=== PATIENT | female | born 1975 | race Caucasian/White ===

== ENCOUNTER 2021-12-15 12:39 | Outpatient (CLI) | payer OTHER, SELFPAY ==
--- NOTE | 2021-12-15 13:00 | CRLHL7_ITS ---
For Patients: As a result of the Century Cures Act, medical imaging exams and procedure reports are released immediately into your electronic medical record. You may view this report before your referring provider. If you have questions, please contact your health care provider. BILATERAL SCREENING MAMMOGRAM WITH COMPUTER-AIDED DETECTION AND TOMOSYNTHESIS TECHNIQUE: CC and MLO views were obtained. These mammographic images have been obtained using full-field digital technique. These mammographic images were interpreted with the benefit of computer-aided detection. Breast Tomosynthesis was used in this interpretation. COMPARISON FILM: 12/13/20, 12/12/19, 08/24/18. FINDINGS: The breasts are heterogeneously dense, which may obscure small masses IMPRESSION: There is no radiographic evidence for malignancy. ASSESSMENT: BI-RADS Category 1: Negative RECOMMENDATION: Routine screening mammogram in 1 year. A lay language report of this examination will be provided to the patient. Edilberto Amado M.D. Diagnostic Radiologist [email or web address] THOM/Dictated by: Edilberto Amado MD @ 12/16/2021 8:45:00 AM (Electronically Signed)
== END 2021-12-15 12:40 | disposition home or self-care (01) ==
LOC: MAMMO 12:40
PROVIDERS: PCP Family Medicine; Visit Provider Family Medicine
DX: Z12.31 Encounter for screening mammogram for malignant neoplasm of breast (principal); R92.2 Inconclusive mammogram
CPT/HCPCS: 77063; 77067

== ENCOUNTER 2024-10-10 14:32 | Outpatient (CLI) | payer BC, SELFPAY ==
[2024-10-12 04:32] LABS: HPV Source Cervix
== END 2024-10-10 14:33 | disposition home or self-care (01) ==
PROVIDERS: PCP Family Medicine; Visit Provider Registered Nurse
DX: Z12.4 Encounter for screening for malignant neoplasm of cervix (principal); Z11.51 Encounter for screening for human papillomavirus (HPV)
CPT/HCPCS: 87624; 87625; 88141; 88142

== ENCOUNTER 2024-10-12 10:10 | Outpatient (CLI) | payer BC, SELFPAY ==
--- NOTE | 2024-10-12 11:13 | P.ANES_ITS ---
Anesthesia Charges Start Date/Time Anesthesia Start Date: 10/12/24 Anesthesia Start Time: 10:48 Stop Date/Time Anesthesia Stop Date: 10/12/24 Anesthesia Stop Time: 11:11 Coding CPT Codes CPT Codes: MICH LWR INTST NDIA NOS - [id number] ([id number]) P1 - NORMAL HEALTHY PATIENT, QK - INDUSTRIAL RELATIONS ANALYST 2-4 CNCRNT ANES PROC, QX - REGISTERED RADIOLOGIC TECHNOLOGIST SVC W/ MED DIRECTION
--- NOTE | 2024-10-12 11:13 | W.ANESCHARGE ---
Anesthesia Charges Start Date/Time Anesthesia Start Date: 10/12/24 Anesthesia Start Time: 10:48 Stop Date/Time Anesthesia Stop Date: 10/12/24 Anesthesia Stop Time: 11:11 Coding CPT Codes CPT Codes: MICH LWR INTST NDCA NOS - [id number] ([id number]) P1 - NORMAL HEALTHY PATIENT, QK - SALT MACHINE OPERATOR 2-4 CNCRNT ANES PROC, QX - RN GERIATRIC SVC W/ MED DIRECTION
--- NOTE | 2024-10-12 11:16 | P.ANES_ITS ---
Anesthesia Charges Start Date/Time Anesthesia Start Date: 10/12/24 Anesthesia Start Time: 10:48 Stop Date/Time Anesthesia Stop Date: 10/12/24 Anesthesia Stop Time: 11:11 Coding CPT Codes CPT Codes: MICH LWR INTST NDIN NOS - [id number] ([id number]) P1 - NORMAL HEALTHY PATIENT, QK - WARD AIDE 2-4 CNCRNT ANES PROC, QX - JAVA APPLICATION DEVELOPER SVC W/ MED DIRECTION
--- NOTE | 2024-10-12 11:16 | W.ANESCHARGE ---
Anesthesia Charges Start Date/Time Anesthesia Start Date: 10/12/24 Anesthesia Start Time: 10:48 Stop Date/Time Anesthesia Stop Date: 10/12/24 Anesthesia Stop Time: 11:11 Coding CPT Codes CPT Codes: MICH LWR INTST NDID NOS - [id number] ([id number]) P1 - NORMAL HEALTHY PATIENT, QK - MARINE ELECTRONICS REPAIRER 2-4 CNCRNT ANES PROC, QX - VEST PRESSER SVC W/ MED DIRECTION
== END 2024-10-12 10:11 | disposition home or self-care (01) ==
LOC: OP CLINIC 10:10
PROVIDERS: PCP Family Medicine; Visit Provider Surgery
DX: Z12.11 Encounter for screening for malignant neoplasm of colon (principal); D12.5 Benign neoplasm of sigmoid colon
CPT/HCPCS: 00811; 00812; 45385; 88305; J2704

== ENCOUNTER 2025-01-18 14:41 | Outpatient (CLI) | payer BC, SELFPAY ==
--- NOTE | 2025-01-18 15:00 | CRLHL7_ITS ---
For Patients: As a result of the Cures Act, medical imaging exams and procedure reports are released immediately into your electronic medical record. You may view this report before your referring provider. If you have questions, please contact your health care provider. BILATERAL DIGITAL SCREENING MAMMOGRAM WITH COMPUTER-AIDED DETECTION AND TOMOSYNTHESIS CLINICAL HISTORY: Routine screening exam. COMPARISON: Mammogram 12/15/2021, 12/13/2020. TECHNIQUE: Digital mammogram in CC and MLO projections including computer-aided detection (CAD) and tomosynthesis. BREAST COMPOSITION: There are scattered areas of fibroglandular density. FINDINGS: RIGHT Breast: There is a focal asymmetry at approximately 6 o`clock, posterior depth. LEFT Breast: No suspicious findings. IMPRESSION: RIGHT breast focal asymmetry. RECOMMENDATIONS: Additional mammographic views of the RIGHT breast including 90-degree lateral, spot compression CC and MLO. RIGHT breast ultrasound may also be required. [facility] will contact the patient for follow-up. BI-RADS Category 0: Incomplete: Need Additional Imaging Evaluation A lay language report of this examination will be provided to the patient. Dictated by Mi Luke MD @ 01/20/2025 7:58:29 AM /sp SP/Dictated by: Mi Luke MD @ 01/20/2025 7:58:00 AM (Electronically Signed)
== END 2025-01-18 14:42 | disposition home or self-care (01) ==
LOC: MAMMO 14:41
PROVIDERS: PCP Family Medicine; Visit Provider Registered Nurse
DX: Z12.31 Encounter for screening mammogram for malignant neoplasm of breast (principal); N63.10 Unspecified lump in the right breast, unspecified quadrant
CPT/HCPCS: 77063; 77067

== ENCOUNTER 2025-02-01 08:33 | Outpatient (CLI) | payer BC, SELFPAY ==
--- NOTE | 2025-02-01 08:45 | CRLHL7_ITS ---
For Patients: As a result of the Cures Act, medical imaging exams and procedure reports are released immediately into your electronic medical record. You may view this report before your referring provider. If you have questions, please contact your health care provider. DIGITAL DIAGNOSTIC RIGHT MAMMOGRAM USING TOMOSYNTHESIS RIGHT BREAST ULTRASOUND CLINICAL HISTORY: RIGHT breast mass/asymmetry. COMPARISON: 01/18/2025, 12/15/2021, 12/13/2020. TECHNIQUE: Digital RIGHT mammogram in three projections. Tomosynthesis was used in this interpretation. Real-time ultrasound imaging of RIGHT breast with imaging documentation. BREAST COMPOSITION: There are scattered areas of fibroglandular density. FINDINGS: Additional mammogram images RIGHT breast submitted. Nodular density is present with central low density consistent with lymph node. No architectural distortion or suspicious calcifications. Targeted RIGHT breast ultrasound performed at 6 o`clock 7 cm from the nipple. Normal breast tissue is present. No suspicious findings. IMPRESSION: Benign intramammary lymph node RIGHT breast. No suspicious findings. No evidence of malignancy. RECOMMENDATIONS: Routine screening mammography. A lay language report of this examination will be provided to the patient. BI-RADS Category 2: Benign Dictated by Edilberto Amado MD @ 02/01/2025 9:54:33 AM jj/Dictated by: Edilberto Amado MD @ 02/01/2025 9:54:00 AM (Electronically Signed)
--- NOTE | 2025-02-01 09:15 | CRLHL7_ITS ---
For Patients: As a result of the Cures Act, medical imaging exams and procedure reports are released immediately into your electronic medical record. You may view this report before your referring provider. If you have questions, please contact your health care provider. SEE DIGITAL DIAGNOSTIC RIGHT MAMMOGRAM PERFORMED SAME DAY CRL:[email or web address] blanc/Dictated by: Edilberto Amado MD @ 02/01/2025 9:52:00 AM (Electronically Signed)
== END 2025-02-01 08:34 | disposition home or self-care (01) ==
LOC: MAMMO 08:33
PROVIDERS: PCP Family Medicine; Visit Provider Registered Nurse
DX: N63.10 Unspecified lump in the right breast, unspecified quadrant (principal); R92.8 Other abnormal and inconclusive findings on diagnostic imaging of breast
CPT/HCPCS: 76642; 77065; G0279